=== PATIENT | male | born 1980 | race Caucasian/White ===

== ENCOUNTER 2016-11-30 02:03 | Emergency (ER) | payer MEDICAID ==
[~2016-11-30] VITALS: Ht 182.9 cm; Wt 98.0 kg
[2016-11-30 02:08] VITALS: BP 141/89
== END 2016-11-30 02:33 | disposition home or self-care (01) ==
LOC: ED 02:10
DX: Z00.00 Encounter for general adult medical examination without abnormal findings (principal); G43.909 Migraine, unspecified, not intractable, without status migrainosus
CPT/HCPCS: 99283